=== PATIENT | male | born 1930 | race Hispanic/Latino ===

== ENCOUNTER 2017-04-17 10:58 | Emergency (ER) | payer MEDICARE, MEDICAID ==
[2017-04-17] MEDS ORDERED: HYDROcodone/Acetaminophen 5/325 mg Tablet ONE (14:05)
[2017-04-17] MEDS ORDERED: Ibuprofen 200 MG TAB ONE (14:05)
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
== END 2017-04-17 16:03 | disposition home or self-care (01) ==
LOC: ERS 10:58
DX: M54.41 Lumbago with sciatica, right side (principal); E11.9 Type 2 diabetes mellitus without complications; E78.5 Hyperlipidemia, unspecified; I10 Essential (primary) hypertension; F32.9 Major depressive disorder, single episode, unspecified; Z79.82 Long term (current) use of aspirin; Z79.84 Long term (current) use of oral hypoglycemic drugs; Z79.899 Other long term (current) drug therapy
CPT/HCPCS: 72100